=== PATIENT | male | born 1980 | race Caucasian/White ===

== ENCOUNTER 2022-11-13 17:40 | Emergency (ER) | payer OTHER ==
[2022-11-13] MEDS ORDERED: Lidocaine 1% 5 ML VIAL INJECT STA (20:09)
== END 2022-11-13 22:12 | disposition home or self-care (01) ==
LOC: MW.ED 17:40
DX: S92.411A Displaced fracture of proximal phalanx of right great toe, initial encounter for closed fracture (principal); S92.511A Displaced fracture of proximal phalanx of right lesser toe(s), initial encounter for closed fracture; W20.8XXA Other cause of strike by thrown, projected or falling object, initial encounter
CPT/HCPCS: 28495; 28515; 73630-26-RT; 73630-RT; 73660-26-T6; 73660-T6; 99283; J3490

== ENCOUNTER 2022-12-03 10:18 | Observation (INO) | payer SELFPAY ==
[2022-12-03] MEDS ORDERED: Sodium Chloride 0.9% 2.5 ML Syringe FLUSH PRN (10:31)
[2022-12-03] MEDS ORDERED: Morphine 4 MG/ML Syringe IVPUSH ONE (10:33)
[2022-12-03] MEDS: Sodium Chloride 0.9% 10 ML Syringe FLUSH PRN ×2 (10:59→11:01)
[2022-12-03 11:13] LABS: BLOOD UREA NITROGEN,BUN 14 mg/dL (7.0-18.0); CARBON DIOXIDE,CO2 26.8 mmol/L (21.0-32.0); CHLORIDE,CL 100 mmol/L (98-107); GLUCOSE RANDOM 139 mg/dL (74-106); LIPASE 70 U/L (73-393); POTASSIUM,K 3.8 mmol/L (3.5-5.1); SODIUM,NA 138 mmol/L (136-148)
[2022-12-03 11:19] LABS: ESTIMATED GFR 71 mL/min (>60)
[2022-12-03] MEDS ORDERED: Iopamidol 755 MG/ML 500 ML Multipack Bottle IVPUSH ONE (11:25)
[2022-12-03] MEDS ORDERED: Sodium Chloride 0.9% 1,000 ML IV ONE (12:17)
[2022-12-03] MEDS ORDERED: Apixaban 5 MG Tab PO STA (12:45)
[2022-12-03] MEDS ORDERED: HYDROmorphone 1 MG/ML Syringe IVPUSH ONE (12:54)
[2022-12-03] MEDS ORDERED: Albuterol/Ipratropium 3.0-0.5 MG/3 ML Neb Soln NEB PRN (14:00)
[2022-12-03] MEDS ORDERED: Polyethylene Glycol 3350 Powder 17 GM Packet PO PRN (14:30)
[2022-12-03] MEDS ORDERED: Ondansetron 4 MG/2 ML SDV IVPUSH PRN (14:30)
[2022-12-03] MEDS ORDERED: Docusate Sodium 100 MG Cap PO PRN (14:30)
[2022-12-03] MEDS ORDERED: Acetaminophen 325 MG Tab PO PRN (14:30)
[2022-12-03] MEDS ORDERED: Bisacodyl 5 MG Tab PO PRN (14:30)
[2022-12-03] MEDS ORDERED: Ondansetron 4 MG Tab.DIS PO PRN (14:30)
[2022-12-03] MEDS: oxyCODONE 5 MG Tab PO PRN ×2 (15:36→21:36)
[2022-12-03 15:44] LABS: HEMOGLOBIN A1C 5.5 %
[2022-12-03] MEDS: Morphine 2 MG/ML SYRINGE IVPUSH PRN ×3 (18:09→23:49)
[2022-12-03] MEDS: Apixaban 5 MG Tab PO SCH (20:07)
[2022-12-04] MEDS: Apixaban 5 MG Tab PO SCH ×2 (08:47→20:25)
[2022-12-04] MEDS: Morphine 2 MG/ML SYRINGE IVPUSH PRN (08:47)
[2022-12-04] MEDS ORDERED: Polyethylene Glycol 3350 Powder 17 GM Packet PO ONE (10:30)
[2022-12-04] MEDS: Docusate Sodium 100 MG Cap PO SCH ×2 (10:36→23:30)
[2022-12-04] MEDS: oxyCODONE 5 MG Tab PO PRN (20:27)
[2022-12-05] MEDS: Apixaban 5 MG Tab PO SCH (09:45)
[2022-12-05] MEDS: Docusate Sodium 100 MG Cap PO SCH (09:46)
[2022-12-11] MEDS ORDERED: Apixaban 5 MG Tab PO SCH (09:00)
== END 2022-12-05 16:45 | disposition home or self-care (01) ==
LOC: MW.ED 10:18 → MW.MS 12:43
PROVIDERS: ADMIT Hospitalist; ATTEND Hospitalist
DX: I26.99 Other pulmonary embolism without acute cor pulmonale (principal); S92.411A Displaced fracture of proximal phalanx of right great toe, initial encounter for closed fracture; S92.501A Displaced unspecified fracture of right lesser toe(s), initial encounter for closed fracture; K59.00 Constipation, unspecified; R73.9 Hyperglycemia, unspecified; N40.0 Benign prostatic hyperplasia without lower urinary tract symptoms; Z98.890 Other specified postprocedural states; Z20.822 Contact with and (suspected) exposure to COVID-19
CPT/HCPCS: 36415; 71045; 71275; 74177; 80053; 83036; 83605; 83690; 84484; 85025; 85379; 85610; 87635; 93005; 96361; 96374; 96375; 96376; 99285; A9270; G0378; J1170; J2270; J3490; J7030; Q9967; 93010; U0002